=== PATIENT | female | born 1945 | race Caucasian/White ===

== ENCOUNTER 2017-02-08 15:12 | Emergency (ER) | payer MEDICARE ==
[~2017-02-08] VITALS: Ht 160 cm; Wt 72.7 kg
[2017-02-08] MEDS ORDERED: SYNTHROID75 MCG PO (15:28)
[2017-02-08] MEDS ORDERED: ATIVAN1 MG PO (15:29)
[2017-02-08] MEDS ORDERED: ADDERALL10 MG PO (15:29)
[2017-02-08] MEDS ORDERED: LIPITOR80 MG PO (15:29)
[2017-02-08] MEDS ORDERED: LEXAPRO10 MG PO (15:30)
[2017-02-08] MEDS ORDERED: ABILIFY10 M1 PO (15:30)
[2017-02-08] MEDS ORDERED: EC-NAPROSYN500 MG PO (15:50)
[2017-02-08 16:15] VITALS: BP 139/84
== END 2017-02-08 16:15 | disposition home or self-care (01) ==
LOC: ED 15:12
DX: S63.502A Unspecified sprain of left wrist, initial encounter (principal); M54.2 Cervicalgia; W01.0XXA Fall on same level from slipping, tripping and stumbling without subsequent striking against object, initial encounter; Y93.89 Activity, other specified; Y92.89 Other specified places as the place of occurrence of the external cause